=== PATIENT | male | born 1985 | race African-American/Black ===

== ENCOUNTER 2022-06-29 17:05 | Emergency (ER) | payer MEDICARE, MEDICAID, SELFPAY ==
--- NOTE | ~2022-06-29 | CT_ITS ---
EXAMINATION: CT ABDOMEN AND PELVIS WITHOUT CONTRAST CLINICAL INFORMATION: Left-sided flank pain COMPARISON: None TECHNIQUE: Multidetector volumetric imaging was performed from the superior aspect of the liver through the pubic symphysis. Sagittal and coronal reformatted images were obtained on the technologist's workstation. This CT examination was performed using dose optimization techniques as appropriate, variously including the following: *Automated exposure control *Adjustment of mA and/or kV according to patient size (this includes techniques or standardized protocols for targeted exams where dose is matched to indication/reason for exam; i.e. extremities or head) *Use of iterative reconstruction technique DLP: 546 mGy-cm FINDINGS: LUNG BASES: 3-4 mm and adjacent linear high-density nodular opacities in the subpleural left lower lobe, likely small calcified granulomas. Lung bases otherwise clear. LIVER, GALLBLADDER, AND BILIARY TREE: Normal hepatic size. Marked diffuse hepatic hypoattenuation consistent with steatosis. A more dense geographic area of fatty infiltration in the lateral segment left liver lobe is seen. No other liver lesion. No biliary ductal dilation. High-density layering sludge or stones in the dependent gallbladder. No gallbladder wall thickening or pericholecystic inflammatory change. PANCREAS: Unremarkable. SPLEEN: Unremarkable. ADRENAL GLANDS: Unremarkable. KIDNEYS AND URETERS: The kidneys are normal in size, shape, and attenuation. No hydronephrosis, hydroureter, or calculi seen. No perinephric stranding. BLADDER: Unremarkable. GASTROINTESTINAL TRACT: No dilated bowel loops. No bowel wall thickening. Normal appendix. No free air or ascites. ABDOMINAL WALL: No significant hernia is appreciated. LYMPH NODES: No lymphadenopathy. VASCULAR: Unremarkable. PELVIC VISCERA: Unremarkable. OSSEOUS STRUCTURES: Unremarkable. CT/CT abdomen pelvis wo IV con IMPRESSION: 1. No renal or ureteral calculi. No hydronephrosis. 2. No acute intra-abdominal process identified. 3. Marked hepatic steatosis. 4. High-density sludge or stones layering in the gallbladder.
[2022-06-29 17:15] VITALS: BP 136/107; PULSE 101; O2SAT 97
[2022-06-29 17:17] VITALS: BP 125/93; PULSE 109; RESP 18; TEMP 36.5; O2SAT 97; BMI 19.0
--- NOTE | 2022-06-29 17:25 | ED_ITS ---
HPI - General Adult General Chief complaint: Abdominal Pain <GERMAN River - Last Filed: 06/29/22 17:26> Stated complaint: Lt side Abd pain <GERMAN River - Last Filed: 06/29/22 17:26> Time Seen by Provider: 06/29/22 18:35 <GERMAN River - Last Filed: 06/29/22 17:26> Source: patient and EMS <GERMAN River - Last Filed: 06/29/22 17:26> Mode of arrival: EMS <GERMAN River - Last Filed: 06/29/22 17:26> Limitations: no limitations <GERMAN River - Last Filed: 06/29/22 17:26> other (poor historian) <GERMAN Urbina - Last Filed: 06/29/22 22:00> History of Present Illness HPI narrative: 37 yo male with history of alcohol use disorder, costochonditis, history of autoimmune limbic encephalopathy, epilepsy who presents to the ER via EMS for evaluation of left sided flank pain. Patient is a poor historian. Spoke with his mother on the phone who helps provide history. Patient usually gets his care at [facility]. She states he drinks alcohol daily but he is good at hiding it. He gets flares of costochondritis that caused severe pain and ER visits. She states he is allergic to all opioid medications and cannot get them. Patient is a poor historian and reports he has left-sided flank pain that is due to his liver. He admits to drinking wine and smoking marijuana today. <GERMAN Urbina - Last Filed: 06/29/22 22:00> MD complaint: left sided flank pain <GERMAN Urbina - Last Filed: 06/29/22 22:00> Onset (ago): unknown <GERMAN Urbina - Last Filed: 06/29/22 22:00> Location: back, abdomen and left <GERMAN Urbina - Last Filed: 06/29/22 22:00> Radiation: non-radiation <GERMAN Urbina Last Filed: 06/29/22 22:00> Severity: severe <GERMAN Urbina - Last Filed: 06/29/22 22:00> Severity scale (1-10): 10 <GERMAN Urbina - Last Filed: 06/29/22 22:00> Quality: stabbing <GERMAN Urbina - Last Filed: 06/29/22 22:00> Pain Consistency: intermittent <GERMAN Urbina - Last Filed: 06/29/22 22:00> Relieving factors: none <GERMAN Urbina - Last Filed: 06/29/22 22:00> Exacerbating factors: none <GERMAN Urbina - Last Filed: 06/29/22 22:00> Associated symptoms: denies other symptoms <GERMAN Urbina - Last Filed: 06/29/22 22:00> Treatments prior to arrival: none <GERMAN Urbina - Last Filed: 06/29/22 22:00> Related Data Home medications: Previous Rx's Medication Instructions Recorded cyclobenzaprine 10 mg tablet 10 mg PO TID PRN muscle spasm #10 06/29/22 tabs naproxen 500 mg tablet 500 mg PO BID PRN pain #20 tabs 06/29/22 <GERMAN River - Last Filed: 06/29/22 17:26> Allergies/adverse reactions: Allergies Allergy/AdvReac Type Severity Reaction Status Date / Time No Known Allergies Allergy Verified 06/29/22 17:25 <GERMAN River - Last Filed: 06/29/22 17:26> Review of Systems Review of Systems: Yes all other systems are reviewed and are negative <GERMAN Urbina - Last Filed: 06/29/22 22:00> FOR[facility]LY [facility] Social History Social History: Social History Advance Directives: No Advance Directives Information Provided: No <GERMAN River - Last Filed: 06/29/22 17:26> Physical Exam ED Vital Signs: Vital Signs - 24 hr 06/29/22 17:17 06/29/22 20:06 06/29/22 21:47 Temperature 97.7 F Pulse Rate 109 H 94 90 Respiratory Rate 18 16 19 Blood Pressure 125/93 H 109/81 118/77 Pulse Oximetry 97 98 Oxygen Delivery Method Room Air Room Air Oxygen Flow Rate 96 BMI result Body Mass Index 19.0 <GERMAN River Last Filed: 06/29/22 17:26> Vital Signs - 24 hr 06/29/22 17:17 06/29/22 20:06 06/29/22 21:47 Temperature 97.7 F Pulse Rate 109 H 94 90 Respiratory Rate 18 16 19 Blood Pressure 125/93 H 109/81 118/77 Pulse Oximetry 97 98 Oxygen Delivery Method Room Air Room Air Oxygen Flow Rate 96 BMI result Body Mass Index 19.0 <GERMAN Urbina Last Filed: 06/29/22 22:00> Appearance: Alert. Oriented X2. Curled in a ball Eyes: Pupils equal, round and reactive to light. ENT: Pharynx normal. Neck: Normal inspection. Neck supple. CVS: Normal heart rate and rhythm. Pulses normal. Respiratory: No respiratory distress. Breath sounds normal. Abdomen: Soft, flat with left sided abdominal tenderness on the flank, +CVA tenderness. normal +BS x4 Skin: Skin warm and dry. Normal skin color. Normal skin turgor. No rashes. Extremities: No lower extremity edema. Neuro: Oriented X 2, moves all extremities and follows simple commands. Tremulous at times <GERMAN Urbina - Last Filed: 06/29/22 22:00> Course Course Course Narrative: RME performed by Tatiana Patterson PA-C. Patient is a 37 year old male presenting to the emergency department via EMS with left abdominal pain. Patient refusing to answer questions. Labs ordered. Patient placed in waiting room pen ding results and room availability. <GERMAN River Last Filed: 17:26> Reevaluation(s) Reevaluation #1: 37 yo male with history of autoimmune limbic encephalopathy, seizures, recurrent costochondritis who presents to the ER for evaluation of left-sided flank pain that started today. He drank alcohol and smoked marijuana today. He is difficult to obtain history from. He feels like his pain is due to his liver. He has no right upper quadrant tenderness on examination. He has left- sided flank tenderness and CVA tenderness. Will get CT scan to rule out kidney stone. His labs show stable pancytopenia, AST, ALT elevation consistent with alcohol abuse. <GERMAN Urbina Last Filed: 06/29/22 22:00> Time: 19:20 <GERMAN Urbina - Last Filed: 06/29/22 22:00> Reevaluation #2: CT scan without any acute abnormalities. He has marked hepatic steatosis and some gallbladder sludge. Again he does not have any right upper quadrant tenderness. His bilirubin is normal. He is drinking water. Flank pain could be musculoskeletal. Pain improved with Toradol and Lidoderm patch. Will discha rge with NSAID and short course of Flexeril. Encourage helpless primary care doctor. Stable for DC. Spoke with his sister on the phone was going to come pick him up now. All questions were answered. <GERMAN Urbina - Last Filed: 06/29/22 22:00> Time: 21:58 <GERMAN Urbina - Last Filed: 06/29/22 22:00> Medications Administered Discontinued Medications Generic Name Dose Route Start Last Admin Trade Name Freq PRN Reason Stop Dose Admin Ketorolac Tromethamine 30 mg 06/29/22 18:56 06/29/22 19:19 Ketorolac Tromethamine 30 Mg/Ml Vial IM 06/29/22 18:57 30 mg ONCE ONE Administration Lidocaine 1 patch 06/29/22 18:55 06/29/22 19:20 Lidocaine 4 % Patch Adh..Patch TRANSDERMA 06/29/22 18:56 1 patch ONCE ONE Administration Protocol <GERMAN River - Last Filed: 06/29/22 17:26> Medications Administered Discontinued Medications Generic Name Dose Route Start Last Admin Trade Name Freq PRN Reason Stop Dose Admin Ketorolac Tromethamine 30 mg 06/29/22 18:56 06/29/22 19:19 Ketorolac Tromethamine 30 Mg/Ml Vial IM 06/29/22 18:57 30 mg ONCE ONE Administration Lidocaine 1 patch 06/29/22 18:55 06/29/22 19:20 Lidocaine 4 % Patch Adh..Patch TRANSDERMA 06/29/22 18:56 1 patch ONCE ONE Administration Protocol <GERMAN Urbina - Last Filed: 06/29/22 22:00> Medical Decision Making Differential Diagnosis Differential Diagnoses: The differential diagnosis associated with the presentation includes <GERMAN Urbina Last Filed: 06/29/22 22:00> Alcohol intoxication, adverse reaction to marijuana, gastroenteritis, cholecystitis, alcoholic hepatitis, kidney stone, pyelonephritis, UTI <GERMAN Urbina - Last Filed: 06/29/22 22:00> Lab Data MDM Lab Attestation statement: I reviewed the patient's lab results. <GERMAN Urbina - Last Filed: 06/29/22 22:00> Result Diagrams: : 06/29/22 17:38 06/29/22 17:38 <GERMAN River - Last Filed: 06/29/22 17:26> Labs: Lab Results 06/29/22 06/29/22 06/29/22 Range/Units 17:38 17:38 17:38 WBC 4.3 L (4.8-10.8) X10*3/uL RBC 4.04 L (4.60-5.80) X10*6/uL Hgb 12.5 L (14.0-18.0) g/dl Hct 35.2 L (42.0-52.0) % MCV 87.1 (80.0-98.0) fL MCH 30.9 (27.0-33.0) pg MCHC 35.5 (31.0-36.0) g/dl RDW 17.0 H (11.0-16.0) % Plt Count 151 L (160-400) X10*3/uL MPV 9.1 L (9.4-12.4) fL Immature Gran % (Auto) 0.2 (0.0-0.4) % Neut % (Auto) 26.6 L (45-73) % Lymph % (Auto) 63.9 H (20-40) % [place] % (Auto) 8.6 (2-11) % Eos % (Auto) 0.2 (0-4) % Baso % (Auto) 0.5 (0-2) % Lymph # (Auto) 2.7 (1.2-4.9) X10*3/uL [place] # (Auto) 0.4 (0.1-1.2) X10*3/uL Eos # (Auto) 0.0 (0.0-0.4) X10*3/uL Baso # (Auto) 0.0 (0.0-0.2) X10*3/uL Abs Immat Gran (auto) 0.01 (0.00-0.03) X10*3/uL Absolute Neuts (auto) 1.1 L (2.0-8.3) x10*3/uL Absolute Nucleated RBC 0.030 H (0.0-0.012) X10*3/uL Nucleated RBC % (auto) 0.7 H (0.0-0.2) /100WBC Smear Tech's Comments VERIFIED Sodium 140 (135-145) mmol/L Potassium 3.6 (3.3-5.1) mmol/L Chloride 103 (96-108) mmol/L Carbon Dioxide 22 (22-29) mmol/L Anion Gap 19 (12-20) BUN 10 (9-16) mg/dL Creatinine 0.65 (0.5-1.4) mg/dL Estim Creat Clear Calc 141.1 Estimated GFR > 60 Random Glucose 97 (60-115) mg/dL Calcium 9.8 (8.4-10.2) mg/dL Magnesium 1.8 (1.6-2.6) mg/dL Total Bilirubin 0.6 (0.0-1.0) mg/dL AST 206 H (5-37) U/L ALT 67 H (0-40) U/L Alkaline Phosphatase 121 H (39-117) U/L Total Protein 8.1 H (6.5-8.0) g/dL Albumin 4.4 (3.5-5.0) g/dL Influenza Type A (PCR) NEGATIVE (Negative) Influenza Type B (PCR) NEGATIVE (Negative) RSV RNA Qual (PCR) NEGATIVE (Negative) SARS-CoV-2 RNA (RT-PCR) NEGATIVE (Negative) <GERMAN River - Last Filed: 06/29/22 17:26> Lab Results 06/29/22 06/29/22 06/29/22 Range/Units 17:38 17:38 17:38 WBC 4.3 L (4.8-10.8) X10*3/uL RBC 4.04 L (4.60-5.80) X10*6/uL Hgb 12.5 L (14.0-18.0) g/dl Hct 35.2 L (42.0-52.0) % MCV 87.1 (80.0-98.0) fL MCH 30.9 (27.0-33.0) pg MCHC 35.5 (31.0-36.0) g/dl RDW 17.0 H (11.0-16.0) % Plt Count 151 L (160-400) X10*3/uL MPV 9.1 L (9.4-12.4) fL Immature Gran % (Auto) 0.2 (0.0-0.4) % Neut % (Auto) 26.6 L (45-73) % Lymph % (Auto) 63.9 H (20-40) % [place] % (Auto) 8.6 (2-11) % Eos % (Auto) 0.2 (0-4) % Baso % (Auto) 0.5 (0-2) % Lymph # (Auto) 2.7 (1.2-4.9) X10*3/uL [place] # (Auto) 0.4 (0.1-1.2) X10*3/uL Eos # (Auto) 0.0 (0.0-0.4) X10*3/uL Baso # (Auto) 0.0 (0.0-0.2) X10*3/uL Abs Immat Gran (auto) 0.01 (0.00-0.03) X10*3/uL Absolute Neuts (auto) 1.1 L (2.0-8.3) x10*3/uL Absolute Nucleated RBC 0.030 H (0.0-0.012) X10*3/uL Nucleated RBC % (auto) 0.7 H (0.0-0.2) /100WBC Smear Tech's Comments VERIFIED Sodium 140 (135-145) mmol/L Potassium 3.6 (3.3-5.1) mmol/L Chloride 103 (96-108) mmol/L Carbon Dioxide 22 (22-29) mmol/L Anion Gap 19 (12-20) BUN 10 (9-16) mg/dL Creatinine 0.65 (0.5-1.4) mg/dL Estim Creat Clear Calc 141.1 Estimated GFR > 60 Random Glucose 97 (60-115) mg/dL Calcium 9.8 (8.4-10.2) mg/dL Magnesium 1.8 (1.6-2.6) mg/dL Total Bilirubin 0.6 (0.0-1.0) mg/dL AST 206 H (5-37) U/L ALT 67 H (0-40) U/L Alkaline Phosphatase 121 H (39-117) U/L Total Protein 8.1 H (6.5-8.0) g/dL Albumin 4.4 (3.5-5.0) g/dL Influenza Type A (PCR) NEGATIVE (Negative) Influenza Type B (PCR) NEGATIVE (Negative) RSV RNA Qual (PCR) NEGATIVE (Negative) SARS-CoV-2 RNA (RT-PCR) NEGATIVE (Negative) <GERMAN Urbina - Last Filed: 06/29/22 22:00> Radiology Impression Discussion of test interpretation with radiology: I have reviewed the radiologist's reading. <GERMAN Urbina - Last Filed: 06/29/22 22:00> Radiologist Impression: IMPRESSION: 1.? No renal or ureteral calculi. No hydronephrosis. 2.? No acute intra-abdominal process identified. 3.? Marked hepatic steatosis. 4.? High-density sludge or stones layering in the gallbladder. <GERMAN Urbina - Last Filed: 06/29/22 22:00> Independent Historian Clinical information obtained from an independent historian. History obtained from or confirmed by: Parent <GERMAN Urbina - Last Filed: 06/29/22 22:00> Mom reports he usually gets his care at [facility]. <GERMAN Urbina - Last Filed: 06/29/22 22:00> Prescription Management I considered prescription management with: Pain Medication <GERMAN Urbina - Last Filed: 06/29/22 22:00> Social Determinants Patient?s care significantly limited by Social Determinants of Health including: Alcoholism and drug addiction in family and Other Social Determinant of Health <GERMAN Urbina - Last Filed: 06/29/22 22:00> Critical Care Time Critical Care Time Critical Care Time: No <GERMAN Urbina - Last Filed: 06/29/22 22:00> Discharge Plan Discharge Clinical Impression: Back pain <GERMAN River Last Filed: 06/29/22 17:26> Patient Disposition: Home, Self-Care <GERMAN River - Last Filed: 06/29/22 17:26> Instructions: Back Pain (ED) <GERMAN River - Last Filed: 06/29/22 17:26> Additional Instructions: Your CT scan today did not show any acute causes of your pain. Your pain most likely muscular pain. Take the prescribed medication as needed for pain. DO NOT DRINK ALCOHOL. RECOMMEND DETOX. DO NOT SMOKE MARIJUANA OR USE ANY OTHER DRUGS Follow up with your PCP as soon as possible. If you develop new or worsening symptoms call 911 or come back to the ER for further evaluation. <GERMAN River - Last Filed: 06/29/22 17:26> Prescriptions: New cyclobenzaprine 10 mg tablet 10 mg PO TID PRN (Reason: muscle spasm) Qty: 10 0RF naproxen 500 mg tablet 500 mg PO BID PRN (Reason: pain) Qty: 20 0RF <GERMAN River - Last Filed: 06/29/22 17:26> Referrals: Lisa Elmore [Emergency Nurse] - <GERMAN River - Last Filed: 06/29/22 17:26> Interventions: ED Discharge Assessment Last Done: 06/29/22 21:55 <GERMAN River - Last Filed: 06/29/22 17:26>
[2022-06-29 17:46] LABS: Basophils Percent Auto 0.5 % (0-2); Eosinophils Percent Auto 0.2 % (0-4); Hematocrit 35.2 % (42.0-52.0); Hemoglobin 12.5 g/dl (14.0-18.0); Imm Gran Abs Auto 0.01 X10*3/uL (0.00-0.03); Imm Gran Pct Auto 0.2 % (0.0-0.4); Lymphocytes Absolute Auto 2.7 X10*3/uL (1.2-4.9); Lymphocytes Percent Auto 63.9 % (20-40); MANUAL DIFF FLAG SCAN; Mean Corpuscular HGB Conc 35.5 g/dl (31.0-36.0); Mean Corpuscular Hemoglobin 30.9 pg (27.0-33.0); Mean Corpuscular Volume 87.1 fL (80.0-98.0); Mean Platelet Volume 9.1 fL (9.4-12.4); Monocytes Absolute Auto 0.4 X10*3/uL (0.1-1.2); Monocytes Percent Auto 8.6 % (2-11); NRBC Pct Auto 0.7 /100WBC (0.0-0.2); Neutrophils Absolute Auto 1.1 x10*3/uL (2.0-8.3); Neutrophils Percent Auto 26.6 % (45-73); Platelet Count 151 X10*3/uL (160-400); Red Blood Count 4.04 X10*6/uL (4.60-5.80); SCAN SMEAR FLAG 1; White Blood Count 4.3 X10*3/uL (4.8-10.8)
[2022-06-29 18:02] LABS: Alanine Aminotransferase 67 U/L (0-40); Albumin Level 4.4 g/dL (3.5-5.0); Alkaline Phosphatase 121 U/L (39-117); Anion Gap 19 (12-20); Aspartate Amino Transferase 206 U/L (5-37); Bilirubin Total 0.6 mg/dL (0.0-1.0); Blood Urea Nitrogen 10 mg/dL (9-16); Calcium 9.8 mg/dL (8.4-10.2); Carbon Dioxide 22 mmol/L (22-29); Chloride 103 mmol/L (96-108); Creatinine Clr Calc Pharmacy 141.1; Estimated Glomerular Filt Rate > 60; Glucose Random 97 mg/dL (60-115); Magnesium 1.8 mg/dL (1.6-2.6); Potassium 3.6 mmol/L (3.3-5.1); Sodium 140 mmol/L (135-145); Total Protein 8.1 g/dL (6.5-8.0)
[2022-06-29 18:04] LABS: SLIDE REVIEW VERIFIED
[2022-06-29 18:22] LABS: Influenza A PCR NEGATIVE (Negative); Influenza B PCR NEGATIVE (Negative); Resp Syncy Virus RNA Qual PCR NEGATIVE (Negative); SARS COV2 PCR INHOUSE NEGATIVE (Negative)
--- OUTSIDE RECORDS SUMMARY | 2022-06-29 18:51 | XMS_ITS | Encounter Summary ---
:1985 Author Reason for Visit OUD - buprenorphine follow-up - weekly* Assessment and Plan Assessment Note FACE TO FACE MAT ASSMT. TOOK PLACE TO DAY. 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 This patient with a history of OUD prese nts today for their weekly MAT visit Patient denies any S/E, cravings, or wit hdrawal sx at current dose Update Since Last Visit : (narrative no te) PMH: AUD QUIQUE PRESENTS FOR WEEKLY MAT ASSMT TODAY QUIQUE PRESENTS WITH PARENTS, A/O X3, CALM AND RECEPTIVE PT IS POOR HISTORIAN. TODAY PT SIGNED RO I FOR MOTHER COLLABORATION QUIQUE IS RECOVERING FM COSTCHONDRITIS. TX WITH ANTI-INFLAMMATORIES DENIES DRINKING SINCE LAST VISIT. MOTHER IS UNAWARE EXPLAININED NALTREXONE AND VIVITROL INJ PROTOCOLS EXPLAINED RATIONALE FOR NALTREXONE CHALL ENGE INCLUDING OPIATE ABSTINENCE 7 DAYS---PT DENIES OPIATE USE PT DENIES HX OF ILLIICT DRUG/OPIATE USE PLAN: WEEKLY AUD MAT ASSMTS SCHED FOR PORRAS RM REDUCTION, NALTREXONE CHALLENGE SCHED FOR NEXT VISIT--PT REPORTS HE HAS A RECENT NALTREXONE RX IN WHICH HE WILL BRING IN TO NEXT VISIT-------PHARM CONFIRMED PT HAS RECENTLY P/U HIS NALTREXONE RX, F/U PCP RECOMMENDATION TO AUD MAT TX, F/U LABS, F/U COUNSELING LAB RESULTS Last UDS result (qualitative screen): NE G buprenorphine and POS for the following idrugs: ETOH, BENZO Last confirmatory test result (LCMS/luis titative): N/A due to admitted use Last Bup confirmation test result: Bup: N/A ng/ml & Norbup: N/A ng/ml ASSESSMENT The patient's current phase of OUD treat ment is: Induction phase. Interpretation of last buprenorphine con firmation test result: No concern Medication dose: No report of severe or persistent cravings/withdrawal symptoms. Pt will remain at current dose VISIT FREQUENCY Continue weekly visits and UDS. Treatment plan review or change includes continue current level of care LAB ORDERS: Urine drug testing is ordered today with medical necessity as below. Confirmatory testing may be indicated for illicit substances or absence of prescribed buprenorphine. UDS NOT PROVIDED. PT UNABLE TO VOID. LFTS will be repeated per our clinical p rotocol. Prescription monitoring program is thu. If applicable, I have identified agents prescribed to the patient in addition to any issued by our program. The patient has been counseled regarding any risk of combining sedating agents. 1. Opioid dependence STABLE ? drug screen, urine 2. Alcohol dependence UNSTABLE R/T USE Discussion Note: None recorded.Patient educational handouts: No information available. Plan of Care Reminders Provider Appointments None recorded. ? ? Lab Drug Screen, Urine [facility]22 [facility] Referral None recorded. ? ? Procedures None recorded. ? ? Surgeries None recorded. ? ? Imaging None recorded. ? ? Medications Name Start Date ? ? bisacodyl 5 mg tablet,delayed release ? TAKE 4 TABLETS BY MOUTH WITH 8OZ OF [facility] ORALLY ONCE THE DAY BEFORE PROCEDURE 1 DAY clonidine HCl 0.1 mg tablet ? TAKE 1 TABLET BY MOUTH 3 TIMES A DAY NEEDED dicyclomine 10 mg capsule ? TAKE 1 CAPSULE (10 MG TOTAL) BY MOUTH 3 (THREE) TIMES A DAY FOR 7 DAYS. doxycycline monohydrate 100 mg capsule ? duloxetine 20 mg capsule,delayed release ? TAKE 1 CAPSULE BY MOUTH EVERY DAY folic acid 1 mg tablet ? TAKE 1 TABLET BY MOUTH EVERY DAY GaviLyte-G 236 gram-22.74 gram-6.74 gram-5.86 gram ora l solution ? TAKE 4000ML BY MOUTH levetiracetam 500 mg tablet ? TAKE 1 TABLET (500 MG TOTAL) BY MOUTH DAILY. mycophenolate mofetil 250 mg capsule ? TAKE 1 CAPSULE BY MOUTH DAILY. mycophenolate mofetil 500 mg tablet ? TAKE 1 TABLET (500 MG TOTAL) BY MOUTH DAILY. naltrexone 50 mg tablet ? TAKE 1 TABLET BY MOUTH EVERY DAY omeprazole 20 mg capsule,delayed release ? TAKE 1 CAPSULE BY MOUTH EVERY DAY ondansetron 4 mg disintegrating tablet ? TAKE 1 TABLET BY MOUTH EVERY 8 HOURS NEEDED FOR NA USEA sucralfate 100 mg/mL oral suspension ? TAKE 10 ML (1 G TOTAL) BY MOUTH 4 (FOUR) TIMES A DAY WITH MEALS AND NIGHTLY. Vivitrol 380 mg intramuscular suspension,extended rele ase ? Inject 4 mL every 4 weeks by intramuscular route. Medications Administered None recorded. Vitals None recorded. Results Lab Results None recorded. Allergies Code Code System Name Reaction Severity Onset 1190750 RxNorm Sulfur Dioxide ? ? ? Problems Name Status Onset Date Source ? Recurrent Disease Active 03/20/2022 ? Alcohol Dependence Active 04/11/2022 ? Procedures None recorded. Vaccine List None recorded. Social History None recorded. Functional Status Unknown. Past Encounters Encounter Date Diagnosis Provider 04/11/2022 Opioid Dependence; Alcohol Luis A Severino, PARASITOLOGY TEACHER: [address] [facility], [place] [address], Ph. 03/19/2022 Alcohol Dependence; Recurrent Luis A damian, PARASITOLOGY TEACHER: [address] [facility], [place] [address], Ph. History of Present Illness Note: <strong>This patient is here today for their follow-up MAT visit. They are being treated for OUD with buprenorphine.</strong>

<strong><em>PLEASE SEE A & P SECTION FOR FULL VISIT NOTE</em></strong> Review of Systems ? Comprehensive Adult Problem ROS Reported By: Patient Eyes: Eyes: no pain, no discharge, normal movement Psychiatric: Psych: no depression, no anx iety, no insomnia, no stress, no loss of interest Physical Exam ? General Adult Exam* Reported By: Patient Constitutional*: General Presentation: health y-appearing, well-developed. Level of Distress:* no apparent distr ess (NAD)*, responsive in conversation* Psychiatric*: Insight:* good judgement*. M autumn:* recent memory normal*, remote memory normal*. Mental Statu s* active & alert*, normal affect*, normal mood*
--- OUTSIDE RECORDS SUMMARY | 2022-06-29 18:51 | XMS_ITS | Encounter Summary ---
:1985 Author Reason for Visit AUD - Naltrexone follow-Up - Weekly*; AU D - naltrexone induction* Assessment and Plan Assessment Note FACE TO FACE MAT ASSMT. TOOK PLACE . TO REDUCE THE RISK OF CV-19 EXPOSURE, PATIENT AND DENTAL SURGEON WORE FACIAL MASKS AND MAINTAINED SIX FEET SOCIAL DISTANCING. This patient with a history of OUD prese nts today for their weekly MAT visit Patient denies any S/E, cravings, or wit hdrawal sx at current dose Update Since Last Visit : (narrative no te) PATIENT GAVE VERBAL AUTHORIZATION TO ALLOW THE PRESENCE AND ENGAEMENT OF HIS MOTHER DURING TODAYS MAT ASSESSMENT.----MISAEL SIGNED BY PT R/T MOTHER'S ENGAGEMENT PMH: AUD UQIQUE PRESENTS FOR AUD MAT ASSMT AND N ALTREXONE CHALLENGE TOLERATED WELL W/O COMPLICATIONS DENIES OPIATE OR ETOH USE SINCE LAST VIS IT [employer]EMARK AFFIXER POSITIVE FOR TEMAZEPAM----PT REPORTS RECEIVED IN DETOX PT PRESENTE WITH NALTREXONE RX 50 MG TAB S #24 DISCUSCUSSED RISKS OF ILLICIT USE AND ET OH DEPENDENCY LIVES W/ PARENTS DISABLED RELIES ON DAD FOR TRANSP COUNSELING: SEEN BY VAMSHI JOHNSTON TODAY PLAN: CONT WEEKLY FOR AUD STABILIZATION AND SUPPORT, NALTREXONE 50 MG/DAILY, F/U LABS PT TO TAKE 1ST VIVITROL INJ AT NEXT V ISIT LAB RESULTS Last UDS result (qualitative screen): PO S buprenorphine and POS for the following illicit drugs: PENDING Last confirmatory test result (LCMS/luis titative): pending Last Bup confirmation test result: Bup: N/A ng/ml & Norbup: N/A ng/ml ASSESSMENT The patient's current phase of OUD treat ment is: Stabilization phase. Interpretation of last buprenorphine con firmation test result: No concern Medication dose: No report of severe or persistent cravings/withdrawal symptoms. Pt will remain at current dose Rx : Continue NALTREXONE 50mg tabs grazyna y PROVIDED TODAY. VISIT FREQUENCY Continue weekly visits and UDS. Treatment plan review or change includes continue current level of care LAB ORDERS: Urine drug testing is ordered today with medical necessity as below. Confirmatory testing may be indicated for illicit substances or absence of prescribed buprenorphine. UNEXPECTED results on UDS may impact th is patient's treatment plan. The following information will be used to place the proper confirmation orders for the specimen collected for this date 04/15/2022 . Perform Confirmation if Positive Ampheta mines Perform Confirmation if Positive Benzodi azepines Perform Confirmation if Positive Cocaine Perform Confirmation if Positive Methado ne Perform Confirmation if Positive Opiates and/or Fentanyl Perform Confirmation if Positive Oxycodo ne Additional requests in regards to confi rmation orders. NONE LFTS will be repeated per our clinical p rotocol. Prescription monitoring program is revie wed. If applicable, I have identified agents prescribed to the patient in addition to any issued by our program. The patient has been counseled regarding any risk of combining sedating agents. The patient's current phase of treatment is Induction phase AUD. Assessment Review of recent UDS and LCMS is pending . Initial lab studies are abnormal. The patient does meet diagnostic criteri a for opioid dependence. Based on today's assessment, the patient does appear to be a good candidate outpatient treatment with buprenorphine. Induction Patient is dosed in office with their ow n medication. They are given a dose of: naltrexone. The patient is observed in the office an d after 60 minutes there is no evidence of precipitated withdrawal. A dose was repeated. The patient was advised to take no furth er dose for the remainder of the day and begin daily dosing as instructed in am. Moving forward, the patient was educated regarding medication technique for the buprenorphine formulation prescribed. Dosing Instructions Visit frequency recommendations include continue current frequency of visits. Treatment plan review or change TODAY in cludes continue current level of care. Referrals made today include none. Prescription monitoring program is revie wed. If reviewed, I have identified agents prescribed to the patient in addition to any issued by our program; the patient is counseled regarding any risk of combining sedating agents. 1. Alcohol dependence UNSTABLE R/T USE ? drug screen, urine Discussion Note: None recorded.Patient educational handouts: No information available. Plan of Care Patient Instructions As part of your individualized treatmen t plan and program requirement, you will need to bring your correct prescription bottle and all used and unused medication and counseling verification to each appointment; > Agree to participate in counseling and bring counseling verification to each appointment; > Agree to present for random visits; > Agree to not falsify your urine specim ens. Abstain from opiates for 24 hours unles s directed by provider; > If already taking buprenorphine, do no t take a dose the day of the induction until you are in the office with your provider; > Comfort medications were recommended. If accepted, please take as prescribed to support your ability to abstain from opiates until your buprenorphine induction; > Keep your buprenorphine RX package pj sed until you are seen by your provider for induction unless otherwise directed; If you have problems abstaining from op iates, please call the office. Reminders Provider Appointments None recorded. ? ? Lab Drug Screen, [facility] None recorded. ? ? Procedures None [...] recorded. Vitals None recorded. Results Lab Results Date Name Specimen Result Interpretation Description Value Range Status Address ? 04/15/2022 Drug UR ? Amphetamines negative 1,000 Viktoriya l [place] Screen, NG/mL NG/mL Health: Urine [address], [place] ? ? UR ABNORMAL Benzodiazapines positive 200 Fin al [place] NG/mL NG/mL Health: [address], [place] ? ? UR ? Cocaine negative 150 Final [place] Metabolite NG/mL NG/mL Health : [address], [place] ? ? UR ? Opiates negative 300 Final [place] NG/mL NG/mL Health: [address], [place] ? ? UR ? Oxycodone negative 300 Final Marni da NG/mL NG/mL Health: [address], [place] ? ? UR ? Fentanyl negative 2 Final [facility] [facility] NG/mL NG/mL Health: [address], [place] ? ? UR ABNORMAL Ethyl Alcohol positive 10 Final [place] mg/dL mg/dL Health: [address], [place] ? ? UR ? Methadone negative 300 Final M[place]i [place] Metabolite NG/mL NG/mL Health : [address], [place] ? ? UR ? Cannabinoids negative 50 Final S [place] (THC) NG/mL NG/mL Health: [address], [place] ? ? UR ? Urine Creatinine 106.8 >20 Final [place] mg/dL mg/dL Health: [address], [place] ? ? UR ? Urine pH 5.50 4.5-9. Final [place] 0 Health: [address], [place] ? ? UR ? Specific [place] 1.015 1.003- Final [place] 1.035 Health: [address], [place] Allergies Code Code System Name Reaction Severity Onset 8987967 RxNorm Sulfur Dioxide ? ? ? Problems Name Status Onset Date Source ? Recurrent Disease Active 03/20/2022 ? Alcohol Dependence Active 04/11/2022 ? Procedures None recorded. Vaccine List None recorded. Social History None recorded. Functional Status Unknown. Past Encounters Encounter Date Diagnosis Provider 04/15/2022 Alcohol Dependence Luis A Severino CONTINUITY COORDINATOR: [address] [place] [phone], Ph. 04/11/2022 Opioid Dependence; Alcohol Luis A Severino, CONTINUITY COORDINATOR: [address] [facility], [place] [phone], Ph. 03/19/2022 Alcohol Dependence; Recurrent Luis A damian, CONTINUITY COORDINATOR: [address] [facility], [place] [phone], Ph. History of Present Illness Note: <div><strong> This patient is here today for their follow-up MAT visit. They are being treated for </strong>{{AUD* OUD both AUD and OUD}}<strong> with </strong>{{Buprenorphine films/tabs Sublocade Inj Vivitrol Inj Oral naltrexone* Other medication:}}

<strong><em>PLEASE SEE A & P SECTION FOR FULL VISIT NOTE</em></strong></div>
The patient presents for buprenorphine {{induction observation of dosing as already taking buprenorphine}}.

<strong>Last Use History</strong>
The patient {{reports denies}} being in withdrawal.
Last use of opiates {{DATE}} {{TIME}} (time).
Last use/exposure to Methadone {{DATE}} {{TIME}} (time).< br>If applicable, last use of buprenorphine {{DATE}} {{TIME}} (time).
The patient {{did did not}} take comfort medication.

The <strong>Clinical Opiate Withdrawal Scale (COWS)</strong> places the patient prior to induction at {{1-4 (minimal) 5-12 (mild) 13-24 (moderate) 25-36 (moderately severe) >36 (severe)}}.
The patient {{is is not}} deemedclinically appropriate for dosing today.
The patient {{would like refuses}} to proceed with{{induction observed dosing}}.

There {{is is no}} concern for diversion based on { {UDS medication count both UDS and medication count}}.

<div><strong> This patient is here today for their follow-up MAT visit. They are being treated for </strong>{{AUD* OUD both AUD and OUD}}<strong> with </strong>{{Buprenorphine films/tabs Sublocade Inj Vivitrol Inj Oral naltrexone* Other medication:}}</div><div>
</div><d iv>
</div><div>
</div><div><strong><em>PLEASE SEE A & P SECTION FOR FULL VISIT NOTE</em></strong></div><div>
The patient presents for buprenorphine {{induction* observation of dosing as already taking buprenorphine}}.

<strong>Last Use History</strong>
The patient {{reports denies*}} being in withdrawal.
PATIENT DENIES OPIATE USE

The <strong>Clinical Opiate Withdrawal Scale (COWS)</strong> places the patient prior to induction at {{1-4 (minimal)* 5-12 (mild) 13-24 (moderate) 25-36 (moderately severe) >36 (severe)}}.
The patient {{is* is not}} deemed clinically appropriate for dosing today.
Thepatient {{would like* refuses}} to proceed with {{induction* observed dosing}}.
</div> Review of Systems ? Comprehensive Adult Problem [...]
--- OUTSIDE RECORDS SUMMARY | 2022-06-29 18:51 | XMS_ITS | Continuity of Care Document ---
:1985 Author Organization [facility] nt Inpatient Psychiatry Address [address] [place] [address]- Care Team Providers Name Role Phone Everett Perez MD Primary Care Physician Encounter [facility] Date(s): 03/31/22 - 04/07/22 [facility] Inpatient Psychiatry [address] [place] [address]- Discharge Disposition: A-D/C Home Attending Physician: Nadir ANGEL, Declan Polo Admitting Physician: Declan Schmitz MD Referring Physician: Declan Schmitz MD Allergies, Adverse Reactions, Alerts Substance Reaction Severity Status acyclovir Active Florinef Acetate Angioedema Active Valtrex fever and swelling of face Activ e Dilantin high fevers Active Medications cloNIDine 0.1 mg oral tablet 0.1 mg, 1, tablet, By Mouth, 3 times a day, PRN, Refills 0, Maintenance, Anxiety, 03/31/22 11:55:00 EDT, Partial fill upon patient request if the prescription is for a schedule II opioid drug. Start Date: 03/31/22 Status: Orderedfolic acid 1 mg oral tablet 1 mg, 1, tablet, By Mouth, Daily, Refills 0, Maintenance, 03/31/22 11:55:00 EDT, Partial fill upon patient request if the prescription is for a schedule II opioid drug. Start Date: 03/31/22 Status: OrderedlevETIRAcetam 500 mg oral tablet 1 tablet = 500 mg, By Mouth, Daily, 0 Refills, Maintenance, 03/31/22 11:54:00 EDT, Partial fill uponpatient request if the prescription is for a schedule II opioid drug. Start Date: 03/31/22 Status: Orderedmycophenolate mofetil 500 mg oral tablet 1 tablet = 500 mg, By Mouth, Daily, 0 Refills, Maintenance, 03/31/22 11:54:00 EDT, Partial fill uponpatient request if the prescription is for a schedule II opioid drug. Start Date: 03/31/22 Status: Orderednaltrexone 50 mg oral tablet 1 tablet = 50 mg, By Mouth, Daily, 0 Refills, Maintenance, 03/31/22 11:55:00 EDT, Partial fill upon patient request if the prescription is for a schedule II opioid drug. Start Date: 03/31/22 Status: Orderedomeprazole 20 mg oral delayed release tablet 1 tablet = 20 mg, By Mouth, Daily, 0 Refills, Maintenance, 03/31/22 11:55:00 EDT, Partial fill upon patient request if the prescription is for a schedule II opioid drug. Start Date: 03/31/22 Status: Ordered Problem List Condition Confirmation Course Effective Dates Status Health Stat us Informant Depression, Confirmed Active unspecified Alcohol use Confirmed Active disorder, moderate, in early remission, dependence Vital Signs Most recent to oldest 1 2 3 [Reference Range]: Height 183 cm 183 cm 183 cm (04/06/22 10:08 PM) (04/06/22 8:17 AM) (04/05/22 10 :54 PM) Weight 64.9 kg (03/31/22 11:20 AM) Oxygen Saturation [94-100 98 % 100 % 100 % %] (04/07/22 8:18 AM) (04/06/22 10:08 PM) (04/06/22 8 :17 AM) Pulse Rate [55-90 bpm] 100 bpm 79 bpm 82 bpm *H* (04/06/22 8:17 AM) (04/05/22 10:54 PM) (04/07/22 8:18 AM) Body Mass Index [18.5-24.99 19.38 kg/m2 kg/m2] (03/31/22 11:20 AM) Blood Pressure 135/98 mm Hg 127/93 mm Hg 123/83 mm Hg [90-138/55-84 mm Hg] (04/07/22 8:18 AM) (04/06/22 10:08 PM) (04/06 8:17 AM) Respiratory Rate [16-30 16 br/min 16 br/min 18 br/mi n br/min] (04/07/22 10:31 AM) (04/07/22 8:18 AM) (04/06/22 10:11 PM) Temperature [96.8-100.4 97.0 DegF 97.1 DegF 97.3 Deg F DegF] (04/07/22 8:18 AM) (04/06/22 10:08 PM) (04/06/22 8 :17 AM) Mode of Delivery (Oxygen) Room air Room air Room a ir (04/07/22 8:18 AM) (04/06/22 10:08 PM) (04/05/22 1 0:54 PM) Blood pressure sites Arm, right Arm, right Arm, right (04/07/22 8:18 AM) (04/06/22 10:08 PM) (04/06/22 8 :17 AM) Temperature Route Temporal Temporal Temporal (04/07/22 8:18 AM) (04/06/22 10:08 PM) (04/06/22 8 :17 AM) Dry Weight 64.9 kg (03/31/22 11:20 AM) Social History Social History Type Response Tobacco Use: 4 or less cigarettes(le ss than 1/4 pack)/day in last 30 days. Sex Patient Care team information PersonnelName: Everett Perez MD Address: Address: [address] [place] [phone]
--- OUTSIDE RECORDS SUMMARY | 2022-06-29 18:51 | XMS_ITS ---
:1985 Author Care Team Providers Name Role Phone Luis A Severino Primary Care Provider Unavailable Allergies Code Code System Name Reaction Severity Status Onset [id number] RxNorm Sulfur Dioxide ? ? Active ? Medications Name Status Start Date Stop Date ? ? bisacodyl 5 mg tablet,delayed release Active ? Not available TAKE 4 TABLETS BY MOUTH WITH 8OZ OF [facility] ORALLY ONCE THE DAY BEFORE PROCEDURE 1 DAY clonidine HCl 0.1 mg tablet Active ? Not available TAKE 1 TABLET BY MOUTH 3 TIMES A DAY NEEDED dicyclomine 10 mg capsule Active ? Not av ailable TAKE 1 CAPSULE (10 MG TOTAL) BY MOUTH 3 (THREE) TIMES A DAY FOR 7 DAYS. doxycycline monohydrate 100 mg capsule Active ? Not available duloxetine 20 mg capsule,delayed release Active ? Not available TAKE 1 CAPSULE BY MOUTH EVERY DAY folic acid 1 mg tablet Active ? Not avail able TAKE 1 TABLET BY MOUTH EVERY DAY GaviLyte-G 236 gram-22.74 gram-6.74 gram-5.86 gram oral solution Active ? Not available TAKE 4000ML BY MOUTH levetiracetam 500 mg tablet Active ? Not available TAKE 1 TABLET (500 MG TOTAL) BY MOUTH DAILY. mycophenolate mofetil 250 mg capsule Active ? Not available TAKE 1 CAPSULE BY MOUTH DAILY. mycophenolate mofetil 500 mg tablet Active ? Not available TAKE 1 TABLET (500 MG TOTAL) BY MOUTH DAILY. naltrexone 50 mg tablet Active ? Not avai lable TAKE 1 TABLET BY MOUTH EVERY DAY omeprazole 20 mg capsule,delayed release Active ? Not available ondansetron 4 mg disintegrating tablet Active ? Not available TAKE 1 TABLET BY MOUTH EVERY 8 HOURS NEEDED FOR NAUSEA sucralfate 100 mg/mL oral suspension Active ? Not available TAKE 10 ML (1 G TOTAL) BY MOUTH 4 (FOUR) TIMES A DAY WITH MEALS AND NIGHTLY. Vivitrol 380 mg intramuscular suspension,extended release Active ? Not available Problems Name Status Onset Date Source ? Recurrent Disease Active 03/20/2022 ? Alcohol Dependence Active 04/11/2022 ? Procedures None recorded. Results Lab Results Date Name Specimen Result Interpretation Description Value Range Status Address ? 04/15/2022 Drug UR ? Amphetamines negative NG/mL 1,000 Final [facility] Screen, NG/mL Health: Urine [address], [place] ? ? UR ABNORMAL Benzodiazapines positive NG/mL 200 Final [place] NG/mL Health: [address], [place] ? ? UR ? Cocaine negative NG/mL 150 Final [place] Metabolite NG/mL Health : [address], [place] ? ? UR ? Opiates negative NG/mL 300 Final [place] NG/mL Health: [address], [place] ? ? UR ? Oxycodone negative NG/mL 300 Final [place] NG/mL Health: [address], [place] ? ? UR ? Fentanyl negative NG/mL 2 Final [place] NG/mL Health: [address], [place] ? ? UR ABNORMAL Ethyl Alcohol positive mg/dL 10 Final [place] mg/dL Health: [address], [place] ? ? UR ? Methadone negative NG/mL 300 Final [place] Metabolite NG/mL Health : [address], [place] ? ? UR ? Cannabinoids negative NG/mL 50 Fi nal [place] (THC) NG/mL Health: [address], [place] ? ? UR ? Urine 106.8 mg/dL >20 Final [facility] [facility] Creatinine mg/dL Health : [address], [place] ? ? UR ? Urine pH 5.50 4.5-9. Final [place] 0 Health: [address], [place] ? ? UR ? Specific 1.015 1.003- Final [place] 1.035 Health: [address], [place] 04/15/2022 Benzodiaz UR ? Alpha-hydroxyal negative NG/mL 25 Final [place] epine, prazolam NG/mL Health: [facility] [address], [place] ? ? UR ? 7-Aminoclonazep negative NG/mL 40 Final [place] am NG/mL Health: [address], [place] ? ? UR ? Lorazepam negative NG/mL 50 Final [place] NG/mL Health: [address], [place] ? ? UR ? Nordiazepam negative NG/mL 50 Fin al [place] NG/mL Health: [address], [place] ? ? UR ? Temazepam negative NG/mL 50 Final [place] NG/mL Health: [address] ? ? UR ? Legend abbreviations ? Final Sa minor Health: [address] ? ? UR ? Billing Only billing only ? Viktoriya l [facility] ([id number]) Health: [address] 03/19/2022 Drug UR ? Amphetamines negative NG/mL 1,000 Final [place] Screen, NG/mL Health: Urine [address], [place] ? ? UR ABNORMAL Benzodiazapines positive NG/mL 200 Final [place] NG/mL Health: [address], [place] ? ? UR ABNORMAL Buprenorphine negative NG/mL 5 Final [place] NG/mL Health: [address], [place] ? ? UR ? Cocaine negative NG/mL 150 Final [place] Metabolite NG/mL Health : [address], [place] ? ? UR ? Opiates negative NG/mL 300 Final [place] NG/mL Health: [address], [place] ? ? UR ? Oxycodone negative NG/mL 300 Final [place] NG/mL Health: [address], [place] ? ? UR ? Fentanyl negative NG/mL 2 Final [place] NG/mL Health: [address], [place] ? ? UR ABNORMAL Ethyl Alcohol positive mg/dL 10 Final [place] mg/dL Health: [address], [place] ? ? UR ? Methadone negative NG/mL 300 Final [place] Metabolite NG/mL Health : [address], [place] ? ? UR ? Cannabinoids negative NG/mL 50 Fi nal [place] (THC) NG/mL Health: [address], [place] ? ? UR ? Urine 58.7 mg/dL >20 Final [place] Creatinine mg/dL Health : [address], [place] ? ? UR ? Urine pH 7.80 4.5-9. Final [place] 0 Health: [address], [place] ? ? UR ? Specific 1.005 1.003- Final [place] 1.035 Health: [address], [place] 03/19/2022 Benzodiaz UR ? Alpha-hydroxyal negative NG/mL 25 Final [place] epine, prazolam NG/mL Health: [facility] [address], [place] ? ? UR ? 7-Aminoclonazep negative NG/mL 40 Final [place] am NG/mL Health: [address], [place] ? ? UR ? Lorazepam negative NG/mL 50 Final [place] NG/mL Health: [address], [place] ? ? UR ? Nordiazepam negative NG/mL 50 Fin al [place] NG/mL Health: [address], [place] ? ? UR High Temazepam 125.8 NG/mL 50 Final S avida NG/mL Health: [address], [place] ? ? UR ? Legend abbreviations ? Final Sa minor Health: [address], [place] ? ? UR ? Billing Only billing only ? Viktoriya l [place] ([id number]) Health: [address], [place] Past Encounters Encounter Date Diagnosis Provider 04/15/2022 Alcohol Dependence Luis A Severino LOGISTICS SPECIALIST: [address] [place] [phone], Ph. 04/11/2022 Opioid Dependence; Alcohol Luis A Severino LOGISTICS SPECIALIST: [address] [place] [address], [place] [phone], Ph. 03/19/2022 Alcohol Dependence; Recurrent Luis A damian LOGISTICS SPECIALIST: [address] [place] [address] [place] [phone], Ph. Social History None recorded. Vaccine List None recorded. Plan of Care Patient Instructions As part [...] Provider Appointments None recorded. ? ? Lab None recorded. ? ? Referral None recorded. ? ? Procedures None recorded. ? ? Surgeries None recorded. ? ? Imaging None recorded. ? ? Vitals Blood Pressure 124/84 mm[Hg]
[2022-06-29] MEDS: Ketorolac Tromethamine 30 MG/ML VIAL IM (19:19)
[2022-06-29] MEDS: Lidocaine 4 % Patch ADH..PATCH 1 PATCH TRANSDERMA (19:20)
[2022-06-29 20:06] VITALS: BP 109/81; PULSE 94; RESP 16; O2SAT 98
--- NOTE | 2022-06-29 20:23 | PC.NURSE ---
Assumed care of pt. at 1900. Pt. lying in bed. Pt. started retching and cried out that he needed to vomit. Provided pt. with emesis bag. Pt. coughed a little but didn't vomit. Pt. laid back down on bed. This RN asked pt. if they were having any pain, if the pain medication and patch they received earlier had any effect. Pt. non-responsive and just continued to lie in bed.
[2022-06-29 21:47] VITALS: BP 118/77; PULSE 90; RESP 19
--- NOTE | 2022-06-29 22:01 | PC.NURSE ---
Discharge instructions provided and explained to patient and his sister per pt's permission. Pt ambulates safely and independently. Pt picked up by sister. No apparent distress.
== END 2022-06-29 21:55 | disposition home or self-care (01) ==
PROVIDERS: Physician Assistant Medical; Emergency Provider Internal Medicine
DX: R10.32 Left lower quadrant pain (principal); M54.50 Low back pain, unspecified; Z79.899 Other long term (current) drug therapy; Z20.822 Contact with and (suspected) exposure to COVID-19
CPT/HCPCS: 0241U; 74176; 80053; 83735; 85025; 96372; 99284; J1885

== ENCOUNTER 2023-06-18 11:15 | Outpatient (RCR) | payer OTHER, SELFPAY ==
[2023-06-17 11:43] VITALS: BP 112/79; PULSE 79; TEMP 36.9
[2023-06-17 11:45] VITALS: BMI 19.9
--- NOTE | 2023-06-18 12:35 | PC.NURSE ---
Patient told staff that he thinks he is in ETOH withdrawal. He stated his last drink was last week however told me yesterday when he was admitted he had a few glasses of wine 06/16/23. He stated he has felt this way before when he was withdrawing from ETOH. He appears tremulous, c/o stomach pain. VS 122/87 P 93. Patient stated he feels tired and put his head down on a table while sitting in a chair. He was noted to be moaning and making abnormal body movements. He stated he felt tired and wanted to take the bus home. Consulted with Dr Flowers and an ambulance was called. Patient stated he is taking Keppra however discharge paperwork from [facility] stated it was discontinued and is now taking Trileptal however when I called to reconcile patient's medications with the pharmacy they stated they never got a prescription for Trileptal and the prescription for Keppra was last filled on 05/25/23 for #90 was cancelled. I called [facility] JOSIE Escalera who sent patient's discharge paperwork to [facility] and requested the neurology consult report be faxed to us as well and to Speak to Dr Lou Sanchez regarding medications, per Dr Flowers request, as there is a question on whether patient is to be on both medications? Nurse to Nurse done with Crystal RN at [facility]. Reviewed above mentioned information with Crystal in addition to his medical issues including seizure disorder. Crystal also aware that his medications need to be reconciled as patient was recently discharged from [facility] with medication changes.
--- NOTE | 2023-06-18 12:59 | PC.NURSE ---
Addendum entered by Sherry Pizarro RN 06/19/23 08:16: Dr Flowers reviewed Neurology and d/c medication paperwork from [facility] and looks like Keppra d/c'd and patient is on Trileptal. Patient has been taking Keppra since discharge from [facility] as Trileptal was not filled at pharmacy, they report no record of Trileptal sent to them. He has a 3 month supply of Keppra filled on 03/25/[address] #[address] Flowers is aware. Original Note: Spoke to Lou Sanchez who is going to send the neurology reports the initial and the follow up report. Stated it looks like he was not taking Keppra on the medical floor and was given Trileptal per the discharge paperwork.
--- NOTE | 2023-06-18 13:19 | PC.NURSE ---
Randall came back to the program. He left the ER AMA. I called and spoke to a nurse at [facility] to f/u who stated Randall did not want to stay and be evaluated. She stated he told her his last drink was a week ago. Dr Flowers is aware.
--- NOTE | 2023-06-18 14:49 | HO.PHP ---
The client's case was reviewed and opened in treatment team.
--- NOTE | 2023-06-18 21:13 | P.HPPSP_ITS ---
HPI Date of Service: 06/18/23 Sources of Information: patient interviewed, chart reviewed and crisis/core team assessment reviewed HPI Narrative: Patient is a 38 yo male with history of depression, anxiety, alcohol dependence, with complicated PMH including autoimmune encephalopathy, epileptic seizures, documented cognitive/memory/hearing impairment, liver dysfunction, who was stepped down to [facility] from recent psychiatric inpatient hospitalization at [facility] following acute medical admission status post query-intentional acetaminophen overdose. Patient seen in front office spec complaining of withdrawal symptoms, stomach pain. He presented with altered mental status, tremulous, variably arousable/communicative, somnolent, unstable on feet, and slumping over in chair. EMS called to transport to ED for eval for withdrawals sx ?DTs. Patient stayed 5 min and left AMA. He returned to program. Patient needs to be medically cleared before starting program otherwise he will need to be discharged. [facility] Medical History (Updated 06/24/23 @ 08:34 by Sherry Pizarro RN) Flat foot Autoimmune disease Transaminitis Hypokalemia Hypomagnesemia Rib pain on left side Normocytic anemia Seizure disorder Nephrolithiasis GERD (gastroesophageal reflux disease) Fatty liver Hearing impairment Liver enzyme elevation Alcohol use disorder Encephalopathy Diagnostics Vital Signs (24Hr): BMI result Body Mass Index 19.9 Meds/Allergies Meds Home Medications Medication Instructions Recorded Confirmed Type fluoxetine 20 mg capsule 20 mg PO DAILY 06/18/23 06/18/23 History melatonin 5 mg tablet 5 mg PO BEDTIME PRN Insomnia 06/18/23 06/18/23 History mycophenolate mofetil 500 mg tablet 500 mg PO DAILY 06/18/23 06/18/23 History naltrexone 50 mg tablet 50 mg PO DAILY 06/18/23 06/18/23 History oxcarbazepine 150 mg tablet 450 mg PO BID 06/18/23 History pantoprazole 40 mg tablet,delayed 40 mg PO DAILY 06/18/23 06/18/23 History release trazodone 50 mg tablet 50 mg PO BEDTIME PRN Insomnia 06/18/23 06/18/23 History Allergies Allergies Allergy/AdvReac Type Severity Reaction Status Date / Time Acyclovir Analogues Allergy Unknown Verified 06/17/23 13:49 fludrocortisone Allergy Unknown Verified 06/17/23 13:49 lamotrigine Allergy Unknown Verified 06/17/23 13:49 levofloxacin Allergy Unknown Verified 06/17/23 13:49 Opioids-Methadone and Related Allergy Unknown Verified 06/17/23 13:49 phenytoin Allergy Unknown Verified 06/17/23 13:49 pyridoxine Allergy Unknown Verified 06/17/23 13:49 trimethoprim Allergy Unknown Verified 06/17/23 13:49 [From Sulfamethoxazole-Trimethoprim] valacyclovir Allergy Unknown Verified 06/17/23 13:49 Assessment & Plan Assessment & Plan (1) Alcohol dependence: Status: Acute Qualifiers: Complication of substance-induced condition: with unspecified compl ication Substance use status: with intoxication Qualified Code(s): F10.229 - Alcohol dependence with intoxication, unspecified Code(s): F10.20 - Alcohol dependence, uncomplicated (2) Altered mental status, unspecified: Status: Acute Qualifiers: Altered mental status type: transient alteration of awareness Qualified Code(s): R40.4 - Transient alteration of awareness Code(s): R41.82 - Altered mental status, unspecified (3) Encephalopathy: Status: Acute Code(s): G93.40 - Encephalopathy, unspecified (4) Depression with anxiety: Status: Acute Code(s): F41.8 - Other specified anxiety disorders (5) Seizure disorder: Status: Acute Code(s): G40.909 - Epilepsy, unspecified, not intractable, without status epilepticus Plan patient requires med clearance prior to returning to [facility] given concerns for altered mental status, postural instability, fall risk. Rule out active withdrawal vs intoxication. He has been advised to either see his PCP as walk in this afternoon or tomorrow AM, or present to [place] ED in the AM. He agrees to come in the AM and will walk over to the ER, we will request physical examination and lab work be done (spec BAL, Urine tox screen and other routine lab work to ensure his safety and medical stability while in the program In the meantime, patient has continued on Keppra for seizure disorder which he has at home, we will hold off sending any refills, until he is medically cleare d. At that time we will picker / packer discussion regarding treatment plan as per neuro consult for seizures disorder Certification I certify that partial hospital treatment is medically necessary due to the symptoms and problems resulting from the patient's mental illness and the failure to treat the patient at the partial hospital level of care would likely result in the patient requiring inpatient psychiatric care which could not be prevented at a less intensive level of care. Time Spent With Patient Time: Total time managing care of this patient today _30___ minutes.
--- NOTE | 2023-06-19 09:31 | PC.NURSE ---
Randall did not show up to the program today. I called and spoke to Randall. He is not going to be able to make it to the program. He and his father, who drives Randall to the program, are pulled over on the side of [address] as their car broke down. They are waiting for a tow truck. [facility] staff are aware.
--- NOTE | 2023-06-19 14:39 | PC.NURSE ---
Randall called and left a message wanting staff to call him back regarding the need for medical clearance to the program. (see nursing note and prescriber note from 06/18/23). Patient speech sounded slurred and difficult to understand on the voice mail message. When I spoke to Randall this morning his speech was clear and easy to understand. Patient has a long history of severe ETOH use. Dr. Flowers is aware and will f/u with patient and patient's sister who is listed as his emergency contact. The plan was for patient to come to the program this morning and get medically cleared regarding possible ETOH withdrawal at the ER however patient was not able to make it to the program d/t his parents car breaking down while coming to the program this morning. Staff called an ambulance yesterday for medical clearance as patient stated he was going through ETOH withdrawal however he left the ER AMA and came back to the program. Vital signs were stable, he was not diaphoretic, he presented with some abnormal movements however without tremor. Of note his story would change when asked when his last drink of ETOH was.
--- NOTE | 2023-06-19 22:03 | P.PNPSP_ITS ---
Subjective Subjective Date of Service: 06/19/23 Medical Problems Affecting Mental Status: Yes Interim History: TELEPHONE CALL: I spoke with the patient last night, and we had agreed on a plan for him to be seen in [place] ED for medical clearance (evaluated for withdrawal symptoms, or any other acute issues) as well as labwork ordered by this abstract writer. Patient did not show to program today. Staff spoke with patient who reported he was unable to get a ride to the program this AM because his father's care broke down. A few hours later he left a VM message; he was noted to have significantly slurred speech, barely intelligible (as compared to [facility] this AM when patient was very clear and coherent - please see nursing note). I attempted to reach patient x5, left VM messages. I was able to reach his emergency contact, sister Josefina ([phone]). She reports patient is active in his addiction . She indicates that his struggles with alcohol have been an issue over the course of this year. She indicates he has long-standing cognitive issues due to seizures and complications related to encephalopathy, however the addition of alcohol addiction has just made a huge mess of his cognitive as well as his mental health issues. She reports that he is not forthcoming about his drinking, and will deny using alcohol even when he is known to be intoxicated. She agrees to reach out to him and let him know that, as we discussed, he would still need to be medically cleared before returning to the program. If he is actively using and/or in withdrawal, he should be admitted to detox. If patient is actively Diagnostics Vital Signs (24Hr): BMI result Body Mass Index 19.9 Assessment & Plan Assessment & Plan (1) Alcohol dependence: Qualifiers: Complication of substance-induced condition: with unspecified complication Substance use status: with intoxication Qualified Code(s): F10.229 - Alcohol dependence with intoxication, unspecified Status: Acute Code(s): F10.20 - Alcohol dependence, uncomplicated Plan If patient is actively using substances, has relapsed/continues to drink and/or is actively in withdrawal, he is advised to seek treatment at detox facility. Otherwise patient requires med clearance prior to returning to [facility], in order to rule out withdrawal or other acute encephalopathy given concerns for altered mental status, instability. He has been advised to either see his PCP or present to [place] ED and request physical examination and lab work (spec BAL, Urine tox screen and other routine lab work to ensure his safety in the program. Certification I certify that partial hospital treatment is medically necessary due to the symptoms and problems resulting from the patient's mental illness and the failure to treat the patient at the partial hospital level of care would likely result in the patient requiring inpatient psychiatric care which could not be prevented at a less intensive level of care. Total time managing care of this patient today __20__ minutes. Discharge Plan Discharge Attending provider: Genevieve Flowers Medications: New paroxetine HCl 20 mg tablet 20 mg PO DAILY Qty: 30 0RF No Action oxcarbazepine 150 mg Tablet 450 mg PO BID Patient Comments: Patient stated he is taking Keppra. Dr Flowers aware. Rx Instructions: Pharmacy has no prescription. Patient never got the prescription. This is on patient's discharge list from [facility]. trazodone 50 mg Tablet 50 mg PO BEDTIME PRN (Reason: Insomnia) naltrexone 50 mg tablet 50 mg PO DAILY mycophenolate mofetil 500 mg Tablet 500 mg PO DAILY pantoprazole 40 mg Tablet,Delayed Release (Dr/Ec) 40 mg PO DAILY fluoxetine 20 mg Capsule 20 mg PO DAILY melatonin 5 mg Tablet 5 mg PO BEDTIME PRN (Reason: Insomnia)
--- NOTE | 2023-06-23 09:51 | PC.NURSE ---
Randall called this morning and stated he is out of town for the holiday and will not be back until as his plane comes in on Thursday06/24/23 at 11:00 am. I did discuss with him that we may need to discharge him since he has missed so many days in the program and will have [facility] staff get back to him regarding this. Also discussed with him that medical clearance will be needed prior to coming back to the program by his PCP or the ER d/t concerns of ETOH withdrawal and the need for detox. He stated he is not actively drinking. See note per Dr Flowers on 06/19/23
--- NOTE | 2023-06-23 11:57 | HO.PHP ---
I spoke with Randall. He is in [facility] and states that he had mentioned to staff that he would be out a few days due to going to visit relatives for [place]. He states that he is returning back to [place] today. He states that he has an appointment with his prescriber tomorrow morning and will be back to [facility] on . He states that he is safe and his speech was clear and concise.
--- NOTE | 2023-06-24 12:20 | HO.PHP ---
I called and left Randall a message to return my call. He did not and I left another message stating that we needed to talk about his absence and possible discharge from the program and to discuss aftercare plans .
--- NOTE | 2023-06-24 15:05 | HO.PHP ---
I spoke with Randall about having to be discharged due to missing days. He stated a referral was made to [facility] for providers and he did leave them a message. He denied any safety concerns. When I stated I was going to give him the numbers for detox he stated he had another call and abruptly hung up the phone. I then called him numerous times and left messages to return call . When he didn't return my calls by the end of the day I left him the numbers for detoxes, substance programs and the crisis lines .
== END 2023-06-24 23:59 | disposition home or self-care (01) ==
LOC: HO.PHPA 11:15
PROVIDERS: Visit Provider Psychiatry & Neurology Psychiatry
DX: F10.20 Alcohol dependence, uncomplicated (principal); R40.4 Transient alteration of awareness; G93.40 Encephalopathy, unspecified; F41.8 Other specified anxiety disorders; G40.909 Epilepsy, unspecified, not intractable, without status epilepticus
CPT/HCPCS: 90791; 90853

== ENCOUNTER → 2023-06-18 11:15 | Outpatient (BNV) | payer OTHER, SELFPAY | PROVIDERS: Visit Provider Psychiatry & Neurology Psychiatry | DX: F10.229 Alcohol dependence with intoxication, unspecified (principal); R40.4 Transient alteration of awareness; G93.40 Encephalopathy, unspecified; F41.8 Other specified anxiety disorders; G40.909 Epilepsy, unspecified, not intractable, without status epilepticus | CPT/HCPCS: 99203; 99211 ==

== ENCOUNTER 2023-06-18 12:25 | Emergency (ER) | payer OTHER, SELFPAY ==
[2023-06-18 12:30] VITALS: BP 124/82; PULSE 78; O2SAT 98
== END 2023-06-18 17:04 | disposition left against medical advice (07) ==
LOC: HO.ED 16:34
PROVIDERS: Emergency Provider Emergency Medicine
DX: R10.9 Unspecified abdominal pain (principal)